=== PATIENT | female | born 1970 | race Hispanic/Latino ===

== ENCOUNTER → 2023-07-14 | Outpatient (CLI) | payer BC | END | disposition home or self-care (01) | LOC: RAH 12:38 | PROVIDERS: ATTEND Internal Medicine | DX: M47.815 Spondylosis without myelopathy or radiculopathy, thoracolumbar region (principal); R06.02 Shortness of breath; Z90.49 Acquired absence of other specified parts of digestive tract | CPT/HCPCS: 71250 ==